=== PATIENT | male | born 1950 | race Caucasian/White ===

== ENCOUNTER → 2018-12-12 | Outpatient (REF) | payer MEDICARE ==
[2018-12-12 11:54] LABS: ALBUMIN 4.3 g/dL (3.2-5.0); ALKALINE PHOSPHATASE 82 u/l (38-126); BILIRUBIN, TOTAL 1.4 mg/dL (0.0-1.4); BUN 10 mg/dL (8-23); BUN/CREATININE RATIO 12 (12-20 (CALC)); CALCULATED LDLCHOLESTEROL 61 mg/dL (62-129 (CALC)); CARBON DIOXIDE 24 mmol/l (22-30); CHLORIDE 96 mmol/l (95-108); CREATININE 0.8 mg/dL (0.7-1.3); GFR > 60 ML/MIN (>=60 (CALC)); GFR FOR AFR.AMER. > 60 ML/MIN (>=60 (CALC)); HDL CHOLESTEROL 64 mg/dL (>=40); SGOT/AST 46 u/l (19-48); SODIUM 133 mmol/l (137-146); TOTAL PROTEIN 7.3 g/dL (6.3-8.2); TOTAL TRIGLYCERIDES 92 mg/dl (30-149); VLDL CHOLESTROL 18 mg/dl (4-45 (CALC))
[2018-12-12 11:57] LABS: ANION GAP 17 (6-22 (CALC)); CHOLESTEROL HDL RATIO 2.2 (<4.4 (CALC)); TOTAL CHOLESTEROL 143 mg/dl (0-199)
== END | disposition home or self-care (01) ==
LOC: LAB 09:26
PROVIDERS: ATTEND Nurse Practitioner
DX: E78.5 Hyperlipidemia, unspecified (principal); I10 Essential (primary) hypertension

== ENCOUNTER → 2018-12-15 | Outpatient (REF) | payer MEDICARE | END | disposition home or self-care (01) | LOC: STRESS 08:46 → NUCMED 09:00 | PROVIDERS: ATTEND Internal Medicine | DX: R01.1 Cardiac murmur, unspecified (principal); R94.31 Abnormal electrocardiogram [ECG] [EKG] | CPT/HCPCS: A9502 ==

== ENCOUNTER 2019-03-05 16:11 | Inpatient (IN) | payer MEDICARE ==
[~2019-03-05] VITALS: Ht 175.3 cm; Wt 60.0 kg
--- NOTE | 2019-03-05 16:24 | NUR ---
PT ARRIVED TO MED/SURG ROOM 279 IN STABLE CONDITION ACCOMPANIED BY VOLUNTEER AND SPOUSE;PT AMBULATED WITH A WEAK GAIT AND 1 PERSON ASSIST TO STANDING SCALE AND BEDSIDE;WT AND VS OBTAINED BY BOO SEGURA;PT A&O X3, ORIENTED TO ROOM AND CALL LIGHT SYSTEM;PT REPORTS INCREASING WEAKNESS,FEVER, AND CHILLS X12 DAYS;PT HAD PROSTATECTOMY 01/23/19 AND TOMLINSON REMOVAL 02/05/19;PT REPORTS RT GROIN PAIN RATING 7/10 ON THE PAIN SCALE,PAIN SCALE AND REPORTING EDUCATED;ASSESSMENT COMPLETED;RESPIRATIONS EVEN AND UNLABORED ON RA,CLEAR LUNG SOUNDS;ABDOMEN SOFT ON PALPATION AND ACTIVE IN ALL 4 QUADRANTS, LAST BM 03/05/19;X4 ABDOMINAL INCISIONS INTACT AND SCABBED OVER, SKIN INTACT;STRONG PEDAL PULSES;TELE MONITORING PLACED ON PT; #22G STARTED TO RAC ON 2ND ATTEMPT BY THIS WRITTER, IV FLUIDS STARTED @ 120ML/HR PER ORDER;PT DENIES ANY ADDITIONAL NEEDS AND IS ENCOURAGED TO CALL FOR ASSISTANCE IF NEEDED;FALL PRECAUTIONS IN PLACE WITH CALL LIGHT IN REACH;WILL CONTINUE TO MONITOR
--- NOTE | 2019-03-05 16:35 | NUR ---
Vancomycin consult. Direct admit. Vancomycin 1gm 1x at 1800 today. Will calculate pt specific dose once ht, wt, labs are available.
[2019-03-05 16:54] LABS: IMMATURE GRANULOCYTES 1.5 % (0.0-5.0); MEAN CELL VOLUME 90.3 fL CALC (80.0-100.0); MEAN CORPUSCULAR HGB 30.9 pG CALC (26.0-32.0); MEAN CORPUSCULAR HGB CONC 34.2 g/L CALC (32.0-36.0); NEUT# 20.46 thou/uL (1.82-7.42); RED BLOOD COUNT 3.92 mill/uL (4.70-6.10); RED CELL DISTRI WIDTH 13.7 % (11.5-15.5)
[2019-03-05 16:55] LABS: HEMATOCRIT 35.4 % (39.0-50.0); HEMOGLOBIN 12.1 g/dl (14.0-18.0)
[2019-03-05 17:08] VITALS: BP 137/82
[2019-03-05 17:13] LABS: BUN 15 mg/dL (8-23); BUN/CREATININE RATIO 24 (12-20 (CALC)); CREATININE 0.6 mg/dL (0.7-1.3); GFR > 60 ML/MIN (>=60 (CALC)); GFR FOR AFR.AMER. > 60 ML/MIN (>=60 (CALC)); SGOT/AST 31 u/l (19-48); SODIUM 129 mmol/l (137-146)
[2019-03-05 17:25] LABS: ALBUMIN 3.1 g/dL (3.2-5.0); ALKALINE PHOSPHATASE 217 u/l (38-126); ANION GAP 13 (6-22 (CALC)); BILIRUBIN, TOTAL 0.5 mg/dL (0.0-1.4); CARBON DIOXIDE 35 mmol/l (22-30); CHLORIDE 84 mmol/l (95-108)
--- NOTE | 2019-03-05 17:48 | NUR ---
PT TRANSPORTED TO [facility] VIA WHEELCHAIR IN STABLE CONDITION ACCOMPANIED BY BOO WARNER.
--- NOTE | 2019-03-05 18:00 | NUR ---
PT TRANSPORTED BACK TO ROOM 279 VIA WHEELCHAIR IN STABLE CONDITION ACCOMPANIED BY BOO WARNER
[2019-03-05] MEDS ORDERED: OMEPRAZOLE20 MG PO (18:51)
[2019-03-05] MEDS ORDERED: AMLODIPINE5 MG PO (18:52)
[2019-03-05] MEDS ORDERED: LIPITOR10 M1 PO (18:52)
[2019-03-05 19:20] VITALS: BP 115/68
[2019-03-05 19:59] LABS: URINE BILIRUBIN - DIPSTICK NEGATIVE (NEGATIVE); URINE BLOOD DIPSTICK NEGATIVE (NEGATIVE); URINE COLOR YELLOW; URINE GLUCOSE - DIPSTICK NEGATIVE (NEGATIVE); URINE KETONE 15 mg/dL (NEGATIVE); URINE LEUK ESTERASE NEGATIVE (NEGATIVE); URINE NITRITE - DIPSTICK NEGATIVE (Negative); URINE PROTEIN - DIPSTICK TRACE mg/dL (NEG-TRACE); URINE SPECIFIC GRAVITY 1.015
--- NOTE | 2019-03-05 20:00 | NUR ---
PATIENT RESTING IN BED AT THIS TIME-AWAKE ALERT AND ORIENTEDX3. PATIENT WITH TELE MONITOR IN PLACE. IV SITE TO LEFT FOREARM INTACT WITH IVF NS PATENT AND INFUSING LEFT FOREARM. SITE APPEARS HEALTHY AT THIS TIME. PATIENT VOIDING CLEAR YELLOW URINE IN URINAL. SURGICAL SITE TO ABD WELL HEALED. PATIENT STATES PROSTATECTOMY LAST MONTH BY DR GONZALES AT [facility]. CT REPORT CALLED TO DR. BELTRAN. PATIENT NOW NPO. PAIN MEDS ORDERED PRN. PATIENT WITH RIGHT GROIN, RLQ PAIN-7/10. MEDICATED WITH MORPHNE 2MG IVP WITH GOOD AFFECT. SAFETY PRECAUTIONS REINFORCED. CALL LIGHT IN REACH. WILL CONT TO MONITOR.
[2019-03-06] VITALS: BP 121/70
--- NOTE | 2019-03-06 | NUR ---
PATIENT RESTING IN BED-KCL INFUSING ORDERED. CALL LIGHT IN REACH. WILL CONT TO MONITOR.
[2019-03-06 04:28] VITALS: BP 116/65
--- NOTE | 2019-03-06 04:39 | NUR ---
PATIENT RESTING IN BED-REMAINS NPO FOR IR THIS MORNING. PATIENT MEDICATED WITH MORPHINE 2MG IVP FOR RIGHT GROIN PAIN. IV SITE REMAINS HEALTHY WITH IVF PATENT AND INFUSING AT 120CC/HR. CALL LIGHT IN REACH. WILL CONT TO MONITOR.
[2019-03-06 06:03] LABS: HEMATOCRIT 30.6 % (39.0-50.0); HEMOGLOBIN 10.2 g/dl (14.0-18.0); IMMATURE GRANULOCYTES 1.1 % (0.0-5.0); MEAN CELL VOLUME 91.6 fL CALC (80.0-100.0); MEAN CORPUSCULAR HGB 30.5 pG CALC (26.0-32.0); MEAN CORPUSCULAR HGB CONC 33.3 g/L CALC (32.0-36.0); NEUT# 14.78 thou/uL (1.82-7.42); RED BLOOD COUNT 3.34 mill/uL (4.70-6.10); RED CELL DISTRI WIDTH 13.7 % (11.5-15.5)
[2019-03-06 06:24] LABS: PROTHROMBIN TIME 10.2 SECONDS (9.0-12.5)
[2019-03-06 06:35] LABS: ANION GAP 9 (6-22 (CALC)); BUN 11 mg/dL (8-23); BUN/CREATININE RATIO 19 (12-20 (CALC)); CARBON DIOXIDE 34 mmol/l (22-30); CHLORIDE 90 mmol/l (95-108); CREATININE 0.6 mg/dL (0.7-1.3); GFR > 60 ML/MIN (>=60 (CALC)); GFR FOR AFR.AMER. > 60 ML/MIN (>=60 (CALC)); POTASSIUM 3.1 mmol/l (3.5-5.1); SODIUM 130 mmol/l (137-146)
--- NOTE | 2019-03-06 07:15 | NUR ---
REPORT RECEIVED FROM ALEKS LE;PT APPEARS TO BE SLEEPING IN SUPINE POSITION;NO S/S OF DISTRESS NOTED;RESPIRATIONS EVEN AND UNLABORED ON RA;IV FLUIDS CONTINUE TO INFUSE TO LFA WITH EASE;TELE MONITORING IN PLACE;FALL PRECAUTIONS NOTED WITH BED IN THE LOWEST POSITION AND CALL LIGHT IN REACH;WILL CONTINUE TO MONITOR
--- NOTE | 2019-03-06 08:53 | NUR ---
[id number]IA [facility]EL[facility] IN STABLE CONDITION ACCOMPANIED BY VOLUNTEER.
--- NOTE | 2019-03-06 10:15 | NUR ---
PT RETURNED FROM RADIOLOGY AT THIS TIME VIA WHEELCHAIR IN STABLE CONDITION.
[2019-03-06 10:34] VITALS: BP 141/63
--- NOTE | 2019-03-06 10:35 | NUR ---
PT RE-POSITIONED INTO BED FOR COMFORT,A&O X3;VS OBTAINED AND ASSESSMENT COMPLETED;RESPIRATIONS EVEN AND UNLABORED ON RA,CLEAR LUNG SOUNDS;ABDOMEN SOFT ON PALPATION AND ACTIVE IN ALL 4 QUADRANTS;DOVAL DRAIN BULB TO RIGHT GROIN PATENT AND 40CC OF SANGUINEOUS FLUID EMPTIED FROM DRAIN;STRONG PEDAL PULSES;SKIN INTACT;#22G TO LFA FLUSHED AND PATENT, NS RE-STARTED @ 120ML/HR PER ORDER;NEW #22G STARTED TO RIGHT FOREARM ON 2ND ATTEMPT BY THIS WRITTER;TELE MONITORING IN PLACE;TYLENOL 650MG PO TO BE ADMINISTERED FOR GRAIN PAIN RATING 3/10 ON THE PAIN SCALE;PT DENIES ANY ADDITIONAL NEEDS AND IS ENCOURAGED TO CALL FOR ASSISTANCE IF NEEDED;CALL LIGHT IN REACH;WILL CONTINUE TO MONITOR
--- NOTE | 2019-03-06 11:05 | NUR ---
PT RESTING IN BED WITH SPOUSE AT BEDSIDE; AT BEDSIDE DISCUSSING POC;RESPIRATIONS EVEN AND UNLABORED ON RA;PT DENIES ANY ANY CURRENT PAIN OR NEEDS;TELE MONITORING IN PLACE;ENCOURAGED TO CALL FOR ASSISTANCE IF NEEDED;CALL LIGHT IN REACH;WILL CONTINUE TO MONITOR
[2019-03-06 15:30] VITALS: BP 105/69
--- NOTE | 2019-03-06 15:45 | NUR ---
PT APPEARS TO BE RESTING IN SEMI FOWLERS POSITION;RESPIRATIONS EVEN AND UNLABORED ON RA;PT DENIES ANY CURRENT PAIN OR NEEDS;TELE MONITORING IN PLACE;IV SITE TO LFA AND RFA PATENT;DOVAL DRAIN IN PLACE DRAINING SMALL AMOUNTS OF SANGUINEOUS/GREEN FLUID;ASSESSMENT REMAINS UNCHANGED;ENCOURAGED PT TO CALL FOR ASSISTANCE IF NEEDED;CALL LIGHT IN REACH;WILL CONTINUE TO MONITOR
--- NOTE | 2019-03-06 16:25 | NUR ---
PT RESTING IN BED WITH SPOUSE AT BEDSIDE;PT REPORTS RT GROIN PAIN RATING 7/10 ON THE PAIN SCALE AND REQUESTS PAIN MEDICATION;PT MEDICATED WITH PRN MORPHINE 2MG IVP;WILL CONTINUE TO MONITOR FOR EFFECTIVENESS
[2019-03-06 19:00] VITALS: BP 114/71
--- NOTE | 2019-03-06 19:30 | NUR ---
PATIENT RESTING IN BED AT THIS TIME-AWAKE ALERT AND ORIENTEDX3. PATIENT DRAIN TO RIGHT GROIN INTACT AND DRAINING YELLOW FLUID. TELE MONITOR IN PLACE. SALINE LOCK TO LEFT FOREARM AND SALINE LOCK TO RIGHT FOREARM. BOTH SITE FLUSHED WITH GOOD BLOOD RETURNS. PATIENT LUNGS ARE CLEAR. ABD IS SOFT. LBM WAS YESTERDAY. NO PEDAL EDEMA. PULSES ARE PALPABLE. PATIENT STATES THAT HE HAD ALOT RELIEF TO RIGHT GROIN AND LOWER ABD/PELVIS AFTER DRAIN WAS INSERTED. VOIDING QS MYRTLE URINE IN URINAL. SAFETY PRECAUTIONS REINFORCED. CALL LIGHT IN REACH. WILL CONT TO [id number].
--- NOTE | 2019-03-06 22:15 | NUR ---
PATIENT RESTING IN BED-MEDICATED FOR C/O RIGHT GROIN WITH MORPHINE 2MG IVP. DRAIN TO RIGHT GROIN IN PLACE AND CONT TO DRAIN SMALL AMT OF YELLOW DRAINAGE. VOIDING QS YELLOW URINE IN URINAL. SAFETY PRECAUTIONS REINFORCED. CALL LIGHT IN REACH.
[2019-03-07] VITALS: BP 106/65
--- NOTE | 2019-03-07 | NUR ---
PATIENT APPEARS SLEEPING AT THIS TIME-RESP ARE EVEN AND UNLABORED. CALL LIGHT IN REACH. WILL CONT TO MONITOR,
--- NOTE | 2019-03-07 04:21 | NUR ---
PATIENT RESTING IN BED-MAXIPIME HUNG ORDERED VIA LEFT FOREARM SITE. DRAIN EMPTIED FOR 30CC OF BROWNISH/BEIGE FLUID. DOVAL DRAIN BULB RECOMPRESSED. CONT TO VOID QS IN URINAL. CALL LIGHT IN REACH. WILL CONT TO MONITOR.
[2019-03-07 04:32] VITALS: BP 121/70
[2019-03-07 05:56] LABS: HEMATOCRIT 29.3 % (39.0-50.0); IMMATURE GRANULOCYTES 2.2 % (0.0-5.0); MEAN CELL VOLUME 91.3 fL CALC (80.0-100.0); MEAN CORPUSCULAR HGB 31.2 pG CALC (26.0-32.0); MEAN CORPUSCULAR HGB CONC 34.1 g/L CALC (32.0-36.0); NEUT# 7.54 thou/uL (1.82-7.42); RED BLOOD COUNT 3.21 mill/uL (4.70-6.10); RED CELL DISTRI WIDTH 13.4 % (11.5-15.5)
[2019-03-07 06:12] LABS: ALKALINE PHOSPHATASE 137 u/l (38-126); AMYLASE 34 u/l (30-110); ANION GAP 11 (6-22 (CALC)); BILIRUBIN, TOTAL 0.5 mg/dL (0.0-1.4); BUN 9 mg/dL (8-23); BUN/CREATININE RATIO 17 (12-20 (CALC)); CARBON DIOXIDE 30 mmol/l (22-30); CHLORIDE 91 mmol/l (95-108); CREATININE 0.5 mg/dL (0.7-1.3); GFR > 60 ML/MIN (>=60 (CALC)); GFR FOR AFR.AMER. > 60 ML/MIN (>=60 (CALC)); LIPASE 70 u/l (23-300); MAGNESIUM 1.8 mg/dL (1.6-2.3); POTASSIUM 3.5 mmol/l (3.5-5.1); SGOT/AST 28 u/l (19-48); SODIUM 129 mmol/l (137-146); TOTAL PROTEIN 4.9 g/dL (6.3-8.2)
[2019-03-07 06:13] LABS: ALBUMIN 2.3 g/dL (3.2-5.0)
--- NOTE | 2019-03-07 07:15 | NUR ---
REPORT RECEIVED FROM ALEKS LE;PT APPEARS TO BE SLEEPING IN SUPINE POSITION;RESPIRATIONS EVEN AND UNLABORED ON RA;NO S/S OF DISTRESS NOTED;TELE MONITORING IN PLACE;ALL SAFETY PRECAUTIONS IN PLACE INCLUDING BED IN THE LOWEST POSITION;CALL LIGHT IN REACH;WILL CONTINUE TO MONITOR
[2019-03-07 07:59] VITALS: BP 147/85
--- NOTE | 2019-03-07 08:00 | NUR ---
PT RESTING IN SEMI FOWLERS POSITION, A&O X3;VS OBTAINED AND ASSESSMENT COMPLETED;PT REPORTS RIGHT GROIN PAIN RATING 2/10 ON THE PAIN SCALE AND REQUESTS PAIN MEDICATION,PT TO BE MEDICATED WITH PRN TYLENOL 650MG PO;RESPIRATIONS EVEN AND UNLABORED ON RA,CLEAR LUNG SOUNDS;ABDOMEN SOFT ON PALPATION AND ACTIVE IN ALL 4 QUADRANTS;DOVAL DRAIN NOTED TO RIGHT GROIN DRAINING SMALL AMOUNTS OF GREEN/BROWN FLUID;STRONG PEDAL PULSES;SKIN INTACT;TELE MONITORING IN PLACE;#22G TO RFA AND #22G TO LFA FLUSHED AND PATENT,BOTH SITES APPEAR HEALTHY;400CC OF CLEAR/YELLOW URINE EMPTIED FROM URINAL;PT DENIES ANY ADDITIONAL NEEDS AND IS ENCOURAGED TO CALL FOR ASSISTANCE IF NEEDED;CALL LIGHT IN REACH;WILL CONTINUE TO MONITOR
[2019-03-07 11:12] VITALS: BP 121/7; BP 121/75
--- NOTE | 2019-03-07 11:40 | NUR ---
PT RESTING IN BED WITH SPOUSE AT BEDSIDE;RESPIRATIONS EVEN AND UNLABORED ON RA;PT DENIES ANY CURRENT PAIN OR NEEDS;TELE MONITORING IN PLACE;DOVAL DRAIN PATENT TO RIGHT GROIN AREA;ASSESSMENT REMAINS UNCHANGED AT THIS TIME;PT ENCOURAGED TO CALL FOR ASSISTANCE IF NEEDED;CALL LIGHT IN REACH;WILL CONTINUE TO MONITOR
--- NOTE | 2019-03-07 15:25 | NUR ---
S: GRIS ESPOSITO is a 68 M who presents with PELVIC ABSCESS. He has a history of PROSTATECTOMY. All medications in patient's chart were reviewed. O: VS: BP 121/75, P 83, RR 20,T 96.9 W 60 kg, HT 69IN, Scr=0.5,CrCl= 60(SCR=1 DUE TO AGE)- 100 ml/min> A: Blood culture is pending which is sensitive to <>. P: Patient is on CEFEPIME Q8H AND VANCOMYCIN PHARMACY TO DOSE. Vancomycin ordered for pharmacy to dose. Start Vancomycin 1000MG IV Q12H. Vancomycin trough is drawn before the 4th dose on 03/09/19 @0430. Vancomycin goal trough is between 15-20 mcg/ml. Pharmacy will follow and or advise on antibiotics use as needed. GERRI GRAJEDAD
--- NOTE | 2019-03-07 15:55 | NUR ---
PT RESTING IN SEMI FOWLERS POSITION WITH SPOUSE AT BEDSIDE;RESPIRATIONS EVEN AND UNLABORED ON RA;PT DENIES ANY CURRENT PAIN OR DISCOMFORTS;DRAIN TO RIGHT GROIN AREA PATENT;TELE MONITORING IN PLACE;MESH PANTIES AND A PAD PROVIDED PER REQUEST;PT DENIES ANY ADDITIONAL NEEDS AT THIS TIME AND IS ENCOURAGED TO CALL FOR ASSISTANCE IF NEEDED;CALL LIGHT IN REACH;WILL CONTINUE TO MONITOR
[2019-03-07 16:00] VITALS: BP 132/72
--- NOTE | 2019-03-07 18:55 | NUR ---
REPORT FROM TIGIST VALLEJO. PT SITTING UP IN BED. PT ALERT AND ORIENTED. NO APPARENT DISTRESS NOTED. PT DENIES ANY PAIN OR DISCOMFORT. IV SITE APPEARS HEALTHY. DRAIN SITE CDI, NO OUTPUT NOTED AT THIS TIME. DISCUSSED POC. PT VERBALIZED UNDERSTANDING. CALL LIGHT WITHIN REACH. WILL CONTINUE TO MONITOR.
[2019-03-07 19:13] VITALS: BP 109/66
--- NOTE | 2019-03-07 21:42 | NUR ---
PT MEDICATED FOR MILD PAIN IN RIGHT PELVIC AREA. WILL CONTINUE TO MONITOR.
[2019-03-08 00:05] VITALS: BP 129/74
--- NOTE | 2019-03-08 01:14 | NUR ---
PT C/O PAIN IN LFA SL. IV SITE DISCONTINUED AT THIS TIME UPON REQUEST. CATHETER INTACT. PT TOLERATED WELL. PRESSURE BANDAGE APPLIED.
[2019-03-08 03:55] VITALS: BP 123/77
--- NOTE | 2019-03-08 04:44 | NUR ---
DRAIN EMPTIED AT THIS TIME 10ML OF MILKY ALEXANDER COLORED FLUID NOTED. DOVAL DRAIN BULB RECOMPRESSED. IV ABT INFUSING. MEDICATED FOR RIGHT GROIN PAIN 3-10. PT TOLERATING WELL. CALL LIGHT WITHIN REACH. WILL CONTINUE TO MONITOR.
[2019-03-08 05:16] LABS: HEMATOCRIT 33.5 % (39.0-50.0); HEMOGLOBIN 11.4 g/dl (14.0-18.0); MEAN CELL VOLUME 90.1 fL CALC (80.0-100.0); MEAN CORPUSCULAR HGB 30.6 pG CALC (26.0-32.0); RED BLOOD COUNT 3.72 mill/uL (4.70-6.10); RED CELL DISTRI WIDTH 13.2 % (11.5-15.5)
[2019-03-08 05:38] LABS: ANION GAP 9 (6-22 (CALC)); BUN 9 mg/dL (8-23); BUN/CREATININE RATIO 18 (12-20 (CALC)); CARBON DIOXIDE 31 mmol/l (22-30); CHLORIDE 95 mmol/l (95-108); CREATININE 0.5 mg/dL (0.7-1.3); GFR > 60 ML/MIN (>=60 (CALC)); GFR FOR AFR.AMER. > 60 ML/MIN (>=60 (CALC)); POTASSIUM 3.5 mmol/l (3.5-5.1); SODIUM 131 mmol/l (137-146)
--- NOTE | 2019-03-08 07:30 | NUR ---
REPORT RECEIVED FROM YONI DENNY. PT SITTING UPRIGHT IN BED. DENIES PAIN. DRAIN TO RIGHT GROIN NOTED, TRANSPARENT DRSG INTACT. NO DRAINAGE AT SITE. REPORTING OF CONCERNS ENCOURAGED. PLAN OF CARE DISCUSSED. PT STATES ANTICIPATION OF DISCHARGE. DISCHARGE PROCESS REVIEWED. PT STATES UNDERSTANDING.
[2019-03-08 08:52] VITALS: BP 129/75
--- NOTE | 2019-03-08 11:00 | NUR ---
DR. RODRIGUEZ IN TO SEE PT. PLAN TO DISCHARGE HOME AFTER PICC PLACEMENT DISCUSSED AND AGREED UPON.
--- NOTE | 2019-03-08 12:00 | NUR ---
PT LEFT FLOOR VIA WHEELCHAIR ACCOMPANEID BY VOLUNTEER AND , [facility] RADIOLOGY FOR PICC PLACEMENT.
[2019-03-08] MEDS ORDERED: VANCOMYCIN1000 MG IV (12:27)
--- NOTE | 2019-03-08 12:44 | NUR ---
PT ARRIVED BACK TO FLOOR VIA WHEELCHAIR ACCOMPANIED BY VOLUNTEER AND . PT. REPORTS CT GUIDED NEEDLE ASPIRATION WHILE IN TESTING. ASHLEY PICC LINE PRESENT. RIGHT GROIN DRAIN INTACT. PT REPORTS TOLERATING PROCEDURES WELL.
[2019-03-08 16:11] VITALS: BP 127/77
--- NOTE | 2019-03-08 17:25 | NUR ---
Discharge instructions given. Patient verbalizes understanding of same. Discharged in stable condition via Wheelchair to Home with spouse. All belongings sent with pt.
== END 2019-03-08 17:27 | disposition home or self-care (01) | DRG 373 ==
LOC: MS2 16:11
PROVIDERS: Internal Medicine; ADMIT Internal Medicine; ATTEND Internal Medicine Nephrology
PROC: 0W9J30Z Drainage of Pelvic Cavity with Drainage Device, Percutaneous Approach (ICD-10-PCS; principal; 2019-03-06)
PROC: 0W9J3ZZ Drainage of Pelvic Cavity, Percutaneous Approach (ICD-10-PCS; 2019-03-08)
PROC: 02HV33Z Insertion of Infusion Device into Superior Vena Cava, Percutaneous Approach (ICD-10-PCS; 2019-03-08)
PROC: B518ZZA Fluoroscopy of Superior Vena Cava, Guidance (ICD-10-PCS; 2019-03-08)
PROC: 3E0234Z Introduction of Serum, Toxoid and Vaccine into Muscle, Percutaneous Approach (ICD-10-PCS; 2019-03-08)
DX: K65.1 Peritoneal abscess (principal); C61 Malignant neoplasm of prostate; I10 Essential (primary) hypertension; E78.5 Hyperlipidemia, unspecified; F41.9 Anxiety disorder, unspecified; B95.1 Streptococcus, group B, as the cause of diseases classified elsewhere; Z23 Encounter for immunization; Z90.79 Acquired absence of other genital organ(s)
CPT/HCPCS: J0692; J0713; Q9967

== ENCOUNTER 2020-04-24 06:44 | Day surgery (SDC) | payer MEDICARE ==
[~2020-04-24] VITALS: Ht 175.3 cm; Wt 60.3 kg
[~2020-04-24 06:44] MED LIST: AMLODIPINE5 MG PO; LIPITOR10 M1 PO; OMEPRAZOLE20 MG PO; VANCOMYCIN1000 MG IV; XYZAL ALLERGY 245 MG PO
[2020-04-24] MEDS ORDERED: PERCOCET 5/321 COMBO PO (09:22)
[2020-04-24 09:58] VITALS: BP 107/72
== END 2020-04-24 10:15 | disposition home or self-care (01) ==
LOC: ORM 06:44
PROVIDERS: ATTEND Surgery
PROC: 0YU50JZ Supplement Right Inguinal Region with Synthetic Substitute, Open Approach (ICD-10-PCS; principal; 2020-04-24)
DX: K40.90 Unilateral inguinal hernia, without obstruction or gangrene, not specified as recurrent (principal); I10 Essential (primary) hypertension; Z11.59 Encounter for screening for other viral diseases
CPT/HCPCS: C9290; J0131

== ENCOUNTER 2021-03-17 09:01 | Inpatient (IN) | payer MEDICARE ==
[2021-03-17] VITALS (8 sets, daily range): BP systolic 119–159; BP diastolic 43–82
[~2021-03-17] VITALS: Ht 175.3 cm; Wt 64.0 kg
[~2021-03-17 09:01] MED LIST changes: +PERCOCET 5/321 COMBO PO
--- NOTE | 2021-03-17 12:30 | NUR ---
PT ARRIVES TO ROOM 267 VIA STRETCHER FROM OR ACCOMPANIED BY MARTI FINK. PT IS ALERT AND ORIENTED X 3, ABLE TO SCOOT HIMSELF ACROSS STRETCHER TO BED. PT DENIES SIGNIFICANT PAIN AT THIS TIME, ALTHOUGH HE KNOWS THAT "IT IS THERE." ADMISSION ASSESSMENT COMPLETED. PT SEEN BY DR BELTRAN AND JAYDE TURNER.
--- NOTE | 2021-03-17 14:04 | NUR ---
PT'S HAS BEEN IN FOR VISIT. PT REMAINS RELATIVELY FREE OF PAIN, DENIES NEED FOR PAIN RELIEF MEDICATION. PT ABLE TO VOID WITHOUT DIFFICULTY WHILE IN BED.
--- NOTE | 2021-03-17 20:42 | NUR ---
PT MEDICATED AT THIS TIME ORDERS PROVIDE FOR PM MEDICATIONS AND ALSO FOR PAIN, HE REPORTS A SMALL AMOUNT OF DISCOMFORT, BUT MEDICATED IN PREPARATION OF DRESSING CHANGE, AGREED TO THIS NEED.
--- NOTE | 2021-03-17 20:55 | NUR ---
DRESSING TO TIFAFNIE-RECTAL WOUND CHANGED. PACKING REMOVED AND REPLACED AT THIS TIME WITH MOIST TO DRY ORDERS PROVIDE. PT TOLERATED WELL.
[2021-03-18] VITALS: BP 142/82
--- NOTE | 2021-03-18 00:47 | NUR ---
INCISIONAL WOUND CHECKED FOR BLEEDING, SMALL TO MODERATE AMOUNT OF BLOOD DRAINAGE TO BED PAD. DRESSING REINFORCED AT THIS TIME. A LARGE HYGIENE TYPE PAD PLACED FOR MEASUREMENT OF DRAINAGE. PT TOLERATED WELL, REPORTS PAIN 4/10 ON PAIN SCALE, MEDICATED ALSO AT THIS TIME. DENIES ANY OTHER NEEDS.
--- NOTE | 2021-03-18 03:30 | NUR ---
PAD CHANGED FOR INCISIONAL DRAINAGE 50% SATURATED AT THIS TIME OF BLOODY DRAINAGE. PT REPORTS PAIN 3/10 ON PAIN SCALE
[2021-03-18 04:00] VITALS: BP 131/75
--- NOTE | 2021-03-18 05:05 | NUR ---
DRESSING TO PERIANAL AREA SATURATED, REINFORCED WITH DRY GAUZE AND PADDING CHANGED. BLEEDING APPEARS TO BE SLOWING. MODERATE AMOUNT OF BLEEDING AT POST SURGICAL INCISION. PT TOLERATED WELL. ANTIBIOITIC THERAPY ADMINISTERED AT THIS TIME AND IVF REPLENISHED.
[2021-03-18 05:28] LABS: HEMATOCRIT 33.5 % (39.0-50.0); HEMOGLOBIN 11.2 g/dl (14.0-18.0); MEAN CELL VOLUME 92.3 fL CALC (80.0-100.0); MEAN CORPUSCULAR HGB 30.9 pG CALC (26.0-32.0); MEAN CORPUSCULAR HGB CONC 33.4 g/dL CAL (32.0-36.0); RED BLOOD COUNT 3.63 mill/uL (4.70-6.10); RED CELL DISTRI WIDTH 13.8 % (11.5-15.5)
[2021-03-18 05:43] LABS: ANION GAP 10 (6-22 (CALC)); BUN 9 mg/dL (8-23); BUN/CREATININE RATIO 14 (12-20 (CALC)); CARBON DIOXIDE 28 mmol/l (22-30); CHLORIDE 89 mmol/l (95-108); CREATININE 0.6 mg/dL (0.7-1.3); GFR > 60 ML/MIN (>=60 (CALC)); GFR FOR AFR.AMER. > 60 ML/MIN (>=60 (CALC)); MAGNESIUM 1.4 mg/dL (1.6-2.3); POTASSIUM 3.7 mmol/l (3.5-5.1); SODIUM 123 mmol/l (137-146)
[2021-03-18 08:11] VITALS: BP 146/82
--- NOTE | 2021-03-18 08:11 | NUR ---
PT SITTING IN BED EATING BREAKFAST. A&O X4. NO DISTRESS NOTED. PT DENIES ANY PAIN AT THIS TIME. CLEAR BREATH SOUNDS HEARD UPON AUSCULTATION. ACTIVE BOWEL SOUNDS HEARD X4 QUADRANTS. #20 LAC HEALTHY AND PATENT INFUSING IVF PER EMAR ORDERS. DRESSING INSPECTED, BLOODY DRESSING NOTED. EXPLAINED TO PT THAT DRESSING WOULD BE CHANGED THIS MORNING PER MD'S ORDERS. PT AGREEABLE TO PLAN. 700 CC OF PALE YELLOW URINE NOTED. ASSESSMENT COMPLETED DISCUSSED POC. CALL LIGHT WITHIN REACH.
--- NOTE | 2021-03-18 11:01 | NUR ---
DR NORRIS AND Taye WOODARD PATTERN DRAFTER AT BEDSIDE DISCUSSING POC
--- NOTE | 2021-03-18 11:19 | NUR ---
DR MUIR AT BEDSIDE DISCUSSING POC
[2021-03-18] MEDS ORDERED: CYANOCOBAL1000 MCG/M IM (11:48)
--- NOTE | 2021-03-18 12:00 | NUR ---
SITZ BATH GIVEN, PT TOLERATED WELL. DRESSING CHANGE ALSO DONE PER MD ORDERS . PT TOLERATED WELL. CALL LIGHT WITHIN REACH.
[2021-03-18 14:53] VITALS: BP 131/76
--- NOTE | 2021-03-18 17:36 | NUR ---
PT SITTING IN BED EATING DINNER. PAIN REPORTED 2/10, SCHEDLED TORADOL GIVEN. NO OTHER NEEDS AT THIS TIME. CALL LIGHT WITHIN REACH.
[2021-03-18 19:00] VITALS: BP 119/73
--- NOTE | 2021-03-18 19:20 | NUR ---
BEDSIDE REPORT RECEIVED FROM DAY NURSE. PT DENIES PAIN AT THIS TIME. POC DISCUSSED AND SITZ BATH DISCUSSED ALSO WITH DAY NURSE AND PT.
--- NOTE | 2021-03-18 22:05 | NUR ---
PT MEDICATED AT THIS TIME ORDERS PROVIDE. MINIMAL BLOODY DRAINAGE TO PERIANL INCISION. DRESSING IN PLACE. DISCUSSED POC AND SITZ BATH WITH PT, HE ASKED IF WE CAN DO THAT IN THE MORNING. I ADVISED THAT HE NEEDS TO DO THAT SOME TIME TONIGHT, HE STATED HE WOULD LET ME KNOW WHEN HE IS UP TO THAT, REPORTS PAIN LEVEL 1-2/10, BUT HE WAS SLEEPING WHEN I ENTERED THE ROOM AND STATES THAT HE WOULD LIKE TO RETURN TO SLEEP RIGHT NOW. ENCOURAGED HIM TO CALL IF HE HAS ANY NEEDS.
--- NOTE | 2021-03-18 23:40 | NUR ---
IVF REPLENISHED AT THIS TIME AND PT MEDICATED W/SCHEDULED PAIN MEDICATION. PT INCISIONAL WOUND ASSESSED FOR BLEEDING, REINFORECEMENT GAUZE IS CDI AT THIS TIME WITH CLEAN PAD
[2021-03-19 04:00] VITALS: BP 130/84
[2021-03-19 05:56] LABS: HEMATOCRIT 34.2 % (39.0-50.0); HEMOGLOBIN 11.3 g/dl (14.0-18.0); MEAN CELL VOLUME 93.4 fL CALC (80.0-100.0); MEAN CORPUSCULAR HGB 30.9 pG CALC (26.0-32.0); RED BLOOD COUNT 3.66 mill/uL (4.70-6.10)
[2021-03-19 06:22] LABS: ANION GAP 9 (6-22 (CALC)); BUN 8 mg/dL (8-23); BUN/CREATININE RATIO 11 (12-20 (CALC)); CARBON DIOXIDE 27 mmol/l (22-30); CHLORIDE 98 mmol/l (95-108); CREATININE 0.7 mg/dL (0.7-1.3); GFR > 60 ML/MIN (>=60 (CALC)); GFR FOR AFR.AMER. > 60 ML/MIN (>=60 (CALC)); SODIUM 129 mmol/l (137-146)
[2021-03-19 06:47] LABS: MAGNESIUM 2.1 mg/dL (1.6-2.3)
[2021-03-19 08:45] VITALS: BP 127/73
--- NOTE | 2021-03-19 08:45 | NUR ---
PT SITTING IN BED. A&O X4. NO DISTRESS NOTED. PT REPORTS TO BE FEELING WELL THIS MORNING. PT STATES PAIN IS 2/10 AT THIS TIME. CLEAR BREATH SOUNDS UPON AUSCULTATION. ACTIVE BOWEL SOUNDS X4 QUADRANTS. #20 LAC HEALTHY AND PATENT WITH IVF INFUSING PER EMAR ORDERS. SITZ BATH AND DRESSING CHANGE COMPLETED THIS MORNING AT 5 AM BY Caro MAX RN. DRESSING WITH LIGHT BLOOD TINGE, IMPROVED SINCE YESTERDAY. NEW DRESSING AND SITZ BATH TO BE GIVEN AT 5 PM IN AGREEANCE WITH PT AND TO BE AT BEDSIDE TO BE TAUGHT HOW TO DO DRESSING CHANGE PRIOR TO D/C. NO NEEDS AT THIS TIME. ASSESSMENT COMPLETED. DISCUSSED POC. CALL LIGHT WITHIN REACH.
--- NOTE | 2021-03-19 09:58 | NUR ---
DR NORRIS AND Taye WOODARD DELIVERY MANAGER AT BEDSIDE DISCUSSING POC
--- NOTE | 2021-03-19 11:03 | NUR ---
DR MUIR AT BEDSIDE DISCUSSING POC
--- NOTE | 2021-03-19 13:35 | NUR ---
INSTRUCTION AND EDUCATION ON DRESSING CHANGE GIVEN TO PTS . PTS SHOWS UNDERSTANDING. ANOTHER DEMONSTRATION TO BE GIVEN PRIOR TO D/C.
[2021-03-19 14:42] VITALS: BP 135/72
--- NOTE | 2021-03-19 17:00 | NUR ---
PAIN MEDICATION GIVEN PRIOR TO DRESSING CHANGE AND ORDERED SITZ BATH. PT TOLERATED SITZ BATH AND DRESSING CHANGE WITH NO COMPLICATIONS. COLOR OF SITZ BATH WATER HAS IMPROVED COMPARED TO YESTERDAY MINIMAL BLOOD NOTED. PT DENIES ANY MAJOR PAIN AFTER DRESSING CHANGE. LINEN CHANGED. NO NEEDS AT THIS TIME. CALL LIGHT WITHIN REACH.
[2021-03-19 19:00] VITALS: BP 110/73
--- NOTE | 2021-03-19 21:20 | NUR ---
PT MEDICATED ORDERS PROVIDE. ASSESSMENT COMPLETED. DRESSING TO PERIANAL INCISION HAS SMALL AMOUNT OF BLOODY DRAINAGE/REPLACED OUTER DRESSING, PACKING NOT REMOVED AT THIS TIME. PAD PLACED UNDER PT IS CDI ALSO AT THIS TIME. PT REPORTS PAIN LEVEL 0-1 ON PAIN SCALE. ICE PROVIDED AND DENIED ALL OTHER NEEDS AT THIS TIME. CALL LIGHT IS AT SIDE. LIGHTS TURNED DOWN AND TV ON. POC WAS ALSO DISCUSSED, PT STATES HE IS READY TO GO HOME TOMORROW. I ENCOURAGED HIM TO CALL FOR ANY NEEDS AT ALL, VERBALIZED UNDERSTANDING.
[2021-03-20 03:46] VITALS: BP 136/78
[2021-03-20 06:16] LABS: HEMATOCRIT 34.6 % (39.0-50.0); HEMOGLOBIN 11.4 g/dl (14.0-18.0); MEAN CELL VOLUME 94.8 fL CALC (80.0-100.0); MEAN CORPUSCULAR HGB 31.2 pG CALC (26.0-32.0); MEAN CORPUSCULAR HGB CONC 32.9 g/dL CAL (32.0-36.0); RED BLOOD COUNT 3.65 mill/uL (4.70-6.10); RED CELL DISTRI WIDTH 14.1 % (11.5-15.5)
[2021-03-20 06:23] LABS: ANION GAP 9 (6-22 (CALC)); BUN 10 mg/dL (8-23); BUN/CREATININE RATIO 15 (12-20 (CALC)); CARBON DIOXIDE 27 mmol/l (22-30); CHLORIDE 102 mmol/l (95-108); CREATININE 0.7 mg/dL (0.7-1.3); GFR > 60 ML/MIN (>=60 (CALC)); GFR FOR AFR.AMER. > 60 ML/MIN (>=60 (CALC)); POTASSIUM 4.2 mmol/l (3.5-5.1); SODIUM 132 mmol/l (137-146)
[2021-03-20 07:10] VITALS: BP 149/85
--- NOTE | 2021-03-20 07:53 | NUR ---
SHIFT CHANGE REPORT, PT AWAKE ALERT AND ORIENTED SITTING UP IN BED, C/O PERIANAL PAIN, IVF INFUSING, ALL NEEDS ADDRESSED, BED LOCKED IN LOWEST POSITION AND CALL MEJÍA IN REACH.
[2021-03-20 08:33] VITALS: BP 149/85
--- NOTE | 2021-03-20 11:53 | NUR ---
HAVING MEAL AT THIS TIME, MEDICAL TEAM ROUNDED AND DISCUSSED D/C PLANS, NO NEW COMPLAINS.
--- NOTE | 2021-03-20 11:57 | NUR ---
MEDICAL TEAM ROUNDED AND DISCUSSED PLAN OF CARE, PT SITTING UP IN BED AT THIS TIME HAVING MEAL, NO NEW COMPLAINS AND STATES HE FEELS MUCH BETTER NOW AND READY TO GO HOME, WILL CONTINUE TO MONITOR.
[2021-03-20] MEDS ORDERED: PERCOCET 5/325M1 TAB PO (13:42)
--- NOTE | 2021-03-20 15:08 | NUR ---
Discharge instructions given. Patient verbalizes understanding of same. Discharged in stable condition via Wheelchair to Home with spouse. All belongings sent with pt.
--- NOTE | 2021-03-20 15:09 | NUR ---
INSTRUCTIONS GIVEN ON FOLLOW-UP APPOINTMENT WITH HOME HEALTH CARE AND WITH DR MUIR.
== END 2021-03-20 14:40 | DRG 394 ==
LOC: ORM 09:01 → MS2 11:40
PROVIDERS: Nurse Practitioner; ADMIT Surgery; ATTEND Internal Medicine
PROC: 0DBQ0ZX Excision of Anus, Open Approach, Diagnostic (ICD-10-PCS; principal; 2021-03-17)
PROC: 0H89XZZ Division of Perineum Skin, External Approach (ICD-10-PCS; 2021-03-17)
PROC: 0DJD8ZZ Inspection of Lower Intestinal Tract, Via Natural or Artificial Opening Endoscopic (ICD-10-PCS; 2021-03-17)
DX: K61.0 Anal abscess (principal); E87.1 Hypo-osmolality and hyponatremia; A63.0 Anogenital (venereal) warts; I10 Essential (primary) hypertension; E78.5 Hyperlipidemia, unspecified; K21.9 Gastro-esophageal reflux disease without esophagitis; J30.2 Other seasonal allergic rhinitis; E83.42 Hypomagnesemia
CPT/HCPCS: C9290; J1650; J2710; J3475

== ENCOUNTER 2021-05-12 10:06 | Day surgery (SDC) | payer MEDICARE ==
[~2021-05-12] VITALS: Ht 175.3 cm; Wt 61.7 kg
[~2021-05-12 10:06] MED LIST changes: +CYANOCOBAL1000 MCG/M IM; +PERCOCET 5/325M1 TAB PO
[2021-05-12] MEDS ORDERED: PERCOCET 5/325M1 TAB PO (14:32)
[2021-05-12 14:58] VITALS: BP 128/82
== END 2021-05-12 15:15 | disposition home or self-care (01) ==
LOC: ENDO 10:06 → ORM 11:45 → ENDO 11:45 → ORM 12:45 → ENDO 15:15
PROVIDERS: ATTEND Surgery
PROC: 0DJD8ZZ Inspection of Lower Intestinal Tract, Via Natural or Artificial Opening Endoscopic (ICD-10-PCS; principal; 2021-05-12)
PROC: 0D5QXZZ Destruction of Anus, External Approach (ICD-10-PCS; 2021-05-12)
DX: Z12.11 Encounter for screening for malignant neoplasm of colon (principal); A63.0 Anogenital (venereal) warts; I10 Essential (primary) hypertension
CPT/HCPCS: 46910; G0121; C9290